=== PATIENT | male | born 1990 | race Caucasian/White ===

== ENCOUNTER 2020-06-04 08:26 | Outpatient (REF) | payer MEDICAID, SELFPAY ==
[2020-06-04 09:01] LABS: COVID-19 Test Negative (Negative); IDNOW Serial# 55D5AD1C
== END 2020-06-04 08:27 | disposition home or self-care (01) ==
LOC: HO.LAB 08:26
PROVIDERS: Visit Provider Internal Medicine
DX: Z20.822 Contact with and (suspected) exposure to COVID-19 (principal)
CPT/HCPCS: 36415; 87635; C9803

== ENCOUNTER 2020-08-24 13:20 | Outpatient (REF) | payer MEDICAID, SELFPAY | END 2020-08-24 13:21 | disposition home or self-care (01) | LOC: HO.LAB 13:20 | PROVIDERS: Visit Provider Internal Medicine | DX: Z20.822 Contact with and (suspected) exposure to COVID-19 (principal) | CPT/HCPCS: C9803; U0003; U0005 ==

== ENCOUNTER 2021-06-04 09:19 | Outpatient (REF) | payer MEDICAID, SELFPAY ==
--- NOTE | 2021-06-04 | PFT_ITS ---
INDICATION: Fatigue. SPIROMETRY: FEV1 to FVC 87% with an FEV1 of 4.58 L, which is 99% predicted and FVC of 5.27 L which is 94% predicted. No significant response to bronchodilators noted. The maximum voluntary ventilation is 76% predicted. LUNG VOLUMES: Total lung capacity 90% predicted. DIFFUSION CAPACITY: DLCO 91% predicted. COMPARISONS: None. INTERPRETATION: No obstructive nor restrictive ventilatory defects identified. No significant response to bronchodilators noted. Mild decrease in maximum voluntary ventilation secondary to likely deconditioning. Lung volumes are low normal but likely due to elevated BMI to some degree. Diffusion capacity is within normal limits. Clinical correlation is warranted. MD JOSE Jacques/MARIA C / [id number]
== END 2021-06-04 09:20 | disposition home or self-care (01) ==
LOC: HO.RESP 09:19
PROVIDERS: PCP Internal Medicine; Visit Provider Internal Medicine
DX: R53.83 Other fatigue (principal)
CPT/HCPCS: 94060; 94727; 94729

== ENCOUNTER 2021-07-11 11:49 | Outpatient (REF) | payer MEDICAID, SELFPAY ==
--- NOTE | ~2021-07-11 | XR_ITS ---
EXAMINATION: X-RAY LEFT ANKLE X-RAY LEFT FOOT CLINICAL INFORMATION: Pain. COMPARISON: Radiograph of the right foot dated from 07/05/2010. TECHNIQUE: 2 views of the left ankle. 3 views of the left foot. FINDINGS: No acute fractures or malalignment. The ankle mortise is maintained. No significant degenerative changes. No erosions. Os trigonum is identified in the lateral view. Small calcaneal spurring also noted on the lateral view. No significant soft tissue abnormality. XR/XR ankle LT 2V IMPRESSION: No acute fractures or malalignment. Os trigonum. Calcaneus Spurs.
--- NOTE | ~2021-07-11 | XR_ITS ---
EXAMINATION: X-RAY LEFT ANKLE X-RAY LEFT FOOT CLINICAL INFORMATION: Pain. COMPARISON: Radiograph of the right foot dated from 07/05/2010. TECHNIQUE: 2 views of the left ankle. 3 views of the left foot. FINDINGS: No acute fractures or malalignment. The ankle mortise is maintained. No significant degenerative changes. No erosions. Os trigonum is identified in the lateral view. Small calcaneal spurring also noted on the lateral view. No significant soft tissue abnormality. XR/XR foot LT min 3V IMPRESSION: No acute fractures or malalignment. Os trigonum. Calcaneus Spurs.
== END 2021-07-11 11:50 | disposition home or self-care (01) ==
LOC: HO.XRAY 11:49
PROVIDERS: PCP Internal Medicine; Visit Provider Internal Medicine
DX: M79.672 Pain in left foot (principal)
CPT/HCPCS: 73600; 73630

== ENCOUNTER 2021-08-26 12:21 | Outpatient (REF) | payer MEDICAID, SELFPAY ==
[2021-08-26 14:13] LABS: Syphilis Screen Nonreactive (Nonreactive)
[2021-08-26 17:56] LABS: CT PCR NOT DETECTED (Not Detect.); NG PCR NOT DETECTED (Not Detect.)
[2021-08-27 06:50] LABS: HIV AB/AG Nonreactive (Nonreactive); HIV Num 1 0.09 S/CO (0.00-0.99); ~HepC Num1 0.04 S/CO (0.00-0.79); ~Hepatitis C Antibody Nonreactive (Nonreactive)
== END 2021-08-26 12:22 | disposition home or self-care (01) ==
LOC: HO.LAB 12:21
PROVIDERS: PCP Internal Medicine; Visit Provider Internal Medicine
DX: Z11.3 Encounter for screening for infections with a predominantly sexual mode of transmission (principal); Z11.4 Encounter for screening for human immunodeficiency virus [HIV]
CPT/HCPCS: 86780; 86803; 87389; 87491; 87591

== ENCOUNTER 2024-12-10 01:36 | Inpatient (IN) | payer SELFPAY ==
[2024-12-10] VITALS (7 sets, daily range): BP systolic 116–155; BP diastolic 58–96; PULSE 59–93; RESP 16–20; TEMP 36.2–36.7; O2SAT 95–100; BMI 40.0; BMI 40.7
--- NOTE | ~2024-12-10 | CT_ITS ---
CLINICAL HISTORY: right renal colic CT ABDOMEN AND PELVIS WITHOUT CONTRAST COMPARISON: None provided. FINDINGS: There is mild right-sided hydroureteronephrosis, with an approximately 4-5 mm stone in the right ureterovesical junction. Stone is seen on axial image 752 of series 4. No renal calculi bilaterally. No left-sided hydronephrosis or left-sided obstructing stone. Urinary bladder is underdistended which limits assessment. No evidence of a small-bowel obstruction. No free air. Portions of the colon are underdistended which limits assessment. No pericolonic inflammation. Appendix is visualized and there is no evidence of acute appendicitis. There are several scattered colonic diverticula without evidence of acute diverticulitis. The lung bases are unremarkable. Fatty liver is noted, without focal lesion. Gallbladder is mildly distended. No visible stone. No pericholecystic inflammation. Stomach is not optimally distended which limits assessment. No CT evidence of acute pancreatitis. Spleen and adrenal glands are unremarkable. Abdominal aorta is normal in caliber without evidence of an aneurysm. No lymphadenopathy or loculated fluid collection. No evidence of a bowel containing hernia. Bone windows demonstrate no acute abnormalities. IMPRESSION: 1. Mild right-sided hydroureteronephrosis, with a 4-5 mm stone in the right ureterovesical junction. 2. Additional findings are detailed above. This document has been electronically signed by: Milton Whitley M.D. on 12/10/2024 05:19:26
--- NOTE | ~2024-12-10 | US_ITS ---
CLINICAL HISTORY: right hydroureteronephrosis, right UPJ STONE US Renal Comparison: CT/SR - CT ABDOMEN PELVIS WO IV CON - 12/10/24 04:18 EDT Findings: Right kidney normal size and echotexture, 13.8 cm length. Left kidney normal size and echotexture, 4.6 cm length. Slight prominence of right renal collecting system and proximal ureter measures up to 9 mm. Mid right ureter measures up to 5 mm. Small echogenic focus seen adjacent to the right ureterovesical junction. Bilateral ureteral jets are visualized. No left hydronephrosis. IMPRESSION: 1. Mild fullness of right renal collecting system and mild right hydroureter. Stone at/adjacent to right ureterovesical junction but right ureteral jet is visualized. 2. Unremarkable left kidney. This document has been electronically signed by: Samra Lobo MD on 12/11/2024 15:05:51
[2024-12-10 02:26] LABS: Hematocrit 45.6 % (42.0-52.0); Hemoglobin 15.4 g/dl (14.0-18.0); Imm Gran Abs Auto 0.07 X10*3/uL (0.00-0.03); Imm Gran Pct Auto 0.4 % (0.0-0.4); Lymphocytes Absolute Auto 1.7 X10*3/uL (1.2-4.9); MANUAL DIFF FLAG NO; Mean Corpuscular HGB Conc 33.8 g/dl (31.0-36.0); Mean Corpuscular Hemoglobin 29.5 pg (27.0-33.0); Mean Corpuscular Volume 87.4 fL (80.0-98.0); NRBC Abs Auto 0.000 X10*3/uL (0.0-0.012); NRBC Pct Auto 0.0 /100WBC (0.0-0.2); Platelet Count 330 X10*3/uL (160-400); Red Blood Count 5.22 X10*6/uL (4.60-5.80); White Blood Count 16.0 X10*3/uL (4.8-10.8)
[2024-12-10 02:43] LABS: Alanine Aminotransferase 24 U/L (0-40); Albumin Level 5.1 g/dL (3.5-5.0); Alkaline Phosphatase 95 U/L (39-117); Anion Gap 16 (12-20); Aspartate Amino Transferase 30 U/L (5-37); Blood Urea Nitrogen 20 mg/dL (9-16); Calcium 10.1 mg/dL (8.4-10.2); Carbon Dioxide 24 mmol/L (22-29); Chloride 101 mmol/L (96-108); Creatinine Clr Calc Pharmacy 109.8; Estimated Glomerular Filt Rate > 60; Lipase 28 U/L (8-78); Magnesium 2.2 mg/dL (1.6-2.6); Potassium 3.7 mmol/L (3.3-5.1); Sodium 137 mmol/L (135-145); Total Protein 7.9 g/dL (6.5-8.0)
--- OUTSIDE RECORDS SUMMARY | 2024-12-10 02:53 | XMS_ITS | Encounter Summary ---
Author Organization [email or web address] Address [address] [facility] 7t [place] [address] Care Team Providers Care Unishear Operator Name Role Phone Nick Starks MD Primary Care Prov ider Reason for Visit * Reason Onset Date Comments Lab Orders 02/16/2023 Encounter Details Date Type Department Care Team ([facility] st Contact Info) Description 02/16/2023 Telephone [facility] MEDICINE [address] [place] [address] Nick Starks MD [address] [place] [address] Lab Orders Social History Tobacco Use Types Packs/Day Years Used Date Smoking Tobacco: Every Day Cigarettes Smokeless Tobacco: Never Alcohol Use Standard Drinks/Week Comments Never 0 (1 standard drink = 0.6 oz pur e alcohol) Depression Answer Date Recorded Patient Health Questionnaire-9 Score 0 06/04/2022 Housing Stability Answer Date Recorded What is your housing situation today? I have mikhail echeverria 12/15/[address] you li ve. Do you have problems with any of the following? None of the above 12/15/2022 Food Insecurity Answer Date Recorded Within the past 12 months, y ou worried that your food would run out before you got money to buy more: Never True 12/15/2022 Within the past 12 months,th e food you bought just didn't last and you didn't have enough money to get more: Never True 07/2022 Transportation Answer Date Recorded In the past 12 months, has l ack of transportation kept you from medical appts, meetings, work or from getting things needed for daily living? No 12/15/2022 Utilities Answer Date Recorded In the past 12 months, has t he electric, gas, oil or water company threatened to shut off services in your home? No 12/15/2022 Depression Answer Date Recorded Patient Health Questionnaire-2 Score 0 06/04/2022 Sex and Gender Information Value Date Recorded Sex Assigned at Male 12/09/2021 10:20 AM EDT Legal Sex Male 10:20 AM EDT Gender Identity Male 12/09/2021 10:20 AM EDT Sexual Orientation Straight 12/09/2021 10 :20 AM EDT documented as of this encounter Miscellaneous Notes * Telephone Encounter - Jm Sinclair - 02/16/2023 10:46 AM EST Tc from patients mother requesting lab works due to family medical issues documented in this encounter Plan of Treatment Not on file documented as of this encounter Visit Diagnoses Not on filedocumented in this encounter Additional Health Concerns Assessment Noted Time PHQ-9 Depression Total Score: 0 06/05/19 23 2:05 PM EDT documented as of this encounter Care Teams Unishear Operator Relationship Specialty Start Date End Date Nick Starks MD [address] [place] [id number] PCP - General Internal Medicine 06/25/20 documented as of this encounter
--- OUTSIDE RECORDS SUMMARY | 2024-12-10 02:53 | XMS_ITS | Encounter Summary ---
Author Organization [employer] Address [address] [place] [address] 7t [place] [address] Care Team Providers Care Scullion Chief Name Role Phone Nick Starks MD Primary Care Prov ider Reason for Visit * Reason Onset Date Comments Call Back Request 03/09/2023 Encounter Details Date Type Department Care Team ([facility] Contact Info) Description 03/09/2023 Telephone [facility] CHC MED & PEDS [address] [place] [address] Nick Starks MD [address] [place] [address] Call Back Request Social History Tobacco Use Types Packs/Day Years [...] encounter Miscellaneous Notes * Telephone Encounter - Samra Roper RN - 03/09/2023 1:48 PM EST Mom not on HIPAA. Pt needs to return call and be triaged. * Telephone Encounter - Nadine Manning - 03/09/2023 1:39 PM EST Tc from mom requesting ibuprofen, tylenol, and topical cream for cold sores. Please contact mom at [phone] documented in this encounter Plan of Treatment Not on file documented as of this encounter Visit Diagnoses Not on filedocumented in this encounter Additional Health Concerns Assessment Noted Time PHQ-9 Depression Total Score: 0 06/05/19 23 2:05 PM EDT documented as of this encounter Care Teams Scullion Chief Relationship Specialty Start Date End Date Nick Starks MD [address] [place] [id number] PCP - General Internal Medicine 06/25/20 documented as of this encounter
--- OUTSIDE RECORDS SUMMARY | 2024-12-10 02:53 | XMS_ITS | Clinical Summary ---
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/04/2022 Assessment & Plan (06/04/2022 2:18 PM EDT): Currently not active, will provide valacyclovir 2000mg po Q12h x1 day to be started <72 of onset Encounters Date Type Department Care Team Description 11/22/2024 Telephone [facility] CHC MED & PEDS [address] [place] [address] Nick Starks MD 11/22/2024 Travel from Last 3 Months Social History Tobacco Use Types Packs/Day Years Used Date Smoking Tobacco: Every Day Cigarettes Smokeless Tobacco: Never Tobacco Cessation:Ready to Q uit: Not Asked; Counseling Given: Not Answered Alcohol Use Standard Drinks/Week Comments Never 0 [...] Orientation Straight 12/09/2021 10 :20 AM EDT Last Filed Vital Signs Vital Sign Reading Time Taken Comments Blood Pressure 136/98 02/11/2022 1:09 PM EST Pulse 68 02/11/2022 1:09 PM EST Temperature 36.8 C (98.3 F) 02/11/2022 1:09 PM EST Respiratory Rate 18 02/11/2022 1:09 PM EST Oxygen Saturation 98% 02/11/2022 1:09 PM EST Inhaled Oxygen Concentration - - Weight 125 kg (276 lb) 02/11/2022 1:09 PM EST Height 180.3 cm (5' 11 ) 02/11/2022 1:09 PM EST Body Mass Index 38.49 02/11/2022 1:09 PM EST Plan of Treatment Health Maintenance Due Date Last Done Comments Disability Screening 1989 Alcohol/Substance Use Screening 2001 Family Planning (PISQ) 2004 HPV Vaccines (1 - Male 3-dos e series) 2004 Hepatitis B Vaccines (1 of 3 - 19+ 3-dose series) 2008 Pneumococcal Vaccine: Pediatrics (0 to 5 Years) and At-Risk Patients (6 to 49) Years (1 of 2 - PCV) 2008 Tobacco Screening 02/11/2023 02/11/2022 Depression Screening 06/05/2023 06/04/2022, 06/04/2022 SDOH Screening 06/05/2023 06/04/2022 COVID-19 Vaccine (2 - 2024-2 6 season) 2024 09/18/2020 Influenza Vaccine (#1) 2024 Lipid Panel 03/19/2026 03/19/2021 DTaP/Tdap/Td Vaccines (2 - T d or Tdap) 01/10/2027 01/10/2017 Zoster Vaccines (1 of 2) 2039 RSV Patients and Patients Aged 60 years or older (1 - 1-dose 75+ series) 2064 HIV Screening Completed 08/26/2021, 06/03/2021, 03/19/2021 Hepatitis C Screening Completed 08/26/2021 , 03/19/2021 HIB Vaccines Aged Out No longer eligi ble based on patient's age to complete this topic Hepatitis A Vaccines Aged Out No long er eligible based on patient's age to complete this topic IPV Vaccines Aged Out No longer eligi ble based on patient's age to complete this topic Meningococcal B Vaccine Aged Out No l onger eligible based on patient's age to complete this topic Meningococcal Vaccine Aged Out No jethro melany eligible based on patient's age to complete this topic RSV under 20 months Aged Out No longe r eligible based on patient's age to complete this topic Rotavirus Vaccines Aged Out No longer eligible based on patient's age to complete this topic Procedures Procedure Name Priority Date/Time Associated Diagnosis Comments ZZZ HISTORICAL HEPATITIS C ANTIBODY RFLX Routine 08/26/2021 12:32 PM EDT ZZZ HISTORICAL HIV AB/AG Routine 08/26/2021 12:32 PM EDT LIPID PANEL, STANDARD Routine 03/19/2021 2:38 PM EST from Last 3 Months or Most Recently Relevant to Health Maintenance Results * HEPATITIS C ANTIBODY RFLX (08/26/2021 12:32 PM EDT) Pathologist [facility] Hepatitis C Antibody Nonreactive Nonreactive [facility] Comment: Antibodies to HCV not detected; does not exclude early acute HCV infection. 08/26/2021 12:3 2 PM EDT Nick Armstrong MD HISTORICAL/NON ORD ERABLE LABS Final Result Performing Organization Address [facility] de Phone Number [facility] [address] [place] [address], * HIV AB/AG (08/26/2021 12:32 PM EDT) Pathologist [facility] HIV AB/AG Nonreactive Nonreactive [facility] Comment: HIV-1 p24 Ag and/or HIV-1/HIV-2 Ab not detected. A test result that is nonreactive does not exclude the possibility of exposure to or infection with HIV-1 and/or HIV-2. Nonreactive results in this assay for individuals with prior exposure to HIV-1 and/or HIV-2 may be due to antigen and antibody levels that are below the limit of detection of this assay. The [employer] Low Pressure Kettle Operator HIV Ag/Ab Combo assay result and supplemental assay results should be interpreted in conjunction with the patient's clinical presentation, history and other laboratory results. If the results are inconsistent with clinical evidence, additional testing is suggested to confirm the result. 08/26/2021 12:3 2 PM EDT Nick Armstrong MD HISTORICAL/NON ORD ERABLE LABS Final Result Performing Organization Address [facility] Phone Number [facility] [address] * (ABNORMAL) LIPID PANEL, STANDARD (03/19/2021 2:38 PM EST) Chol/HDLC Ratio 6.6(H) <5.0 (calc) [facility] Cholesterol, Total 249(H) <200 mg/dL [facility] HDL Cholesterol 38(L) > OR = 40 mg/dL [facility] LDL Cholesterol 181(H) mg/dL (calc) [facility] Comment: Reference range: <100 Desirable range <100 mg/dL for primary prevention; <70 mg/dL for patients with CHD or diabetic patients with > or = 2 CHD risk factors. LDL-C is now calculated using the Mayur-Reynolds calculation, which is a validated novel method providing better accuracy than the Friedewald equation in the estimation of LDL-C. Mayur SS et al. CHRISTOPHER. 2013;310(19): 3934-7526 (http://education.Audioscribe.[employer]/faq/QWA492) Non-HDL Cholesterol 211(H) <130 mg/dL (calc) [facility] Comment: For patients with diabetes plus 1 major ASCVD risk factor, treating to a non-HDL-C goal of <100 mg/dL (LDL-C of <70 mg/dL) is considered a therapeutic option. Triglycerides 152(H) <150 mg/dL [facility] 03/19/2021 2:38 PM EST us Nick Armstrong MD LAB BLOOD ORDERABL ES Final Result [facility] [address] from Last 3 Months or Most Recently Relevant to Health Maintenance Care Teams Emergency Room Clerk Relationship Specialty Start Date End Date Nick Starks MD [address] [place] [phone] PCP - General Internal Medicine 06/25/20
--- OUTSIDE RECORDS SUMMARY | 2024-12-10 02:53 | XMS_ITS | Encounter Summary ---
Author Organization [employer] Address [address] [facility] 7t [place] [address] Care Team Providers Care Senior Electrical Project Manager Name Role Phone Nick Starks MD Primary Care Prov ider Encounter Details Date Type Department Care Team (Late st Contact Info) Description 02/17/2023 Orders Only [facility] CHC MED & PEDS [address] [place], [place] [phone] Nick Stakrs MD [address] [place] [address] Social History Tobacco Use Types Packs/Day Years Used Date Smoking Tobacco: Every Day Cigarettes Smokeless Tobacco: Never Alcohol Use Standard Drinks/Week Comments Never 0 (1 standard drink = 0.6 oz pur e alcohol) Depression Answer Date Recorded Patient Health Questionnaire-9 Score 0 06/04/2022 Housing Stability Answer Date Recorded What is your housing situation today? I have mikhailflora echeverria 12/15/[address] you [...] AM EDT documented as of this encounter Plan of Treatment Not on file documented as of this encounter Visit Diagnoses Not on filedocumented in this encounter Additional Health Concerns Assessment Noted Time PHQ-9 Depression Total Score: 0 06/05/19 23 2:05 PM EDT documented as of this encounter Care Teams Senior Electrical Project Manager Relationship Specialty Start Date End Date Nick Starks MD [address] [place] [id number] PCP - General Internal Medicine 06/25/20 documented as of this encounter
--- OUTSIDE RECORDS SUMMARY | 2024-12-10 02:53 | XMS_ITS | Encounter Summary ---
Author Organization [employer] Address [address] [facility] 7t [place] [address] Care Team Providers Care Help Desk Representative Name Role Phone Nick Starks MD Primary Care Prov ider Reason for Visit * Reason Onset Date Comments Nurse Triage 02/16/2023 Encounter Details Date Type Department Care Team ([facility] st Contact Info) Description 02/16/2023 Telephone [facility] MEDICINE [address] [place] [address] Nick Starks MD [address] [place] [address] Nurse Triage Social History Tobacco Use Types Packs/Day Years [...] Telephone Encounter - Jm Sinclair - 02/16/2023 10:51 AM EST Symptom: Cold Sores on face Outcome: Schedule an appointment to be seen within 24 hours Reason: Caller denied all higher acuity questions The caller accepted this outcome documented in this encounter Plan of Treatment Not on file documented as of this encounter Visit Diagnoses Not on filedocumented in this encounter Additional Health Concerns Assessment Noted Time PHQ-9 Depression Total Score: 0 06/05/19 23 2:05 PM EDT documented as of this encounter Care Teams Help Desk Representative Relationship Specialty Start Date End Date Nick Starks MD [address] [place] [id number] PCP - General Internal Medicine 06/25/20 documented as of this encounter
[2024-12-10 04:42] LABS: Appearance Urine Turbid; Glucose Urine UA 100 mg/dL (Negative); PH 5.5 (5.0-9.0); Specific Gravity - Urine >= 1.030 (1.005-1.025); UMIC TRIGGER UACC YES
[2024-12-10 04:49] LABS: UACC Culture Trigger YES
--- NOTE | 2024-12-10 05:12 | ED_ITS ---
HPI - General Adult General Chief complaint: Abdominal Pain Stated complaint: Stomach pain , unable to urinate Time Seen by Provider: 12/10/24 02:05 History of Present Illness HPI narrative: 34-year-old male who is morbidly obese, presents with severe right flank pain that woke him from sleep. Pain over mid to lower flank with radiation to right lower abdomen, pain is intermittent becoming sharp and severe at times. Patient states he has a sensation that he needs to void but can not. Associated nausea but no vomiting no fevers. No history of kidney stones. Related Data Allergies Allergy/AdvReac Type Severity Reaction Status Date / Time No Known Allergies Allergy Verified 12/10/24 01:49 Latex Allergy Unknown rash Uncoded 12/10/24 01:49 Review of Systems 2 Review of Systems: Yes all other systems are reviewed and are negative Constitutional: Constitutional: Denies fatigue and Denies fever(s) Cardiovascular: Cardiovascular: Denies chest pain and Denies dyspnea Respiratory: Respiratory: Denies dyspnea Gastrointestinal: Gastrointestinal: Reports abdominal pain, Reports nausea and Denies vomiting Genitourinary: Genitourinary: Reports oliguria, Reports dysuria and Reports flank pain Musculoskeletal: Musculoskeletal: Reports back pain Endocrine: Endocrine: Denies fatigue PMFSH Past Medical History Attestation statement: The following information was validated with the patient. Social History Social History Alcohol intake: current Smoked in Last 30 Days: Yes Use of substances other than those prescribed or required for medical reasons: Yes Substance Use Type: Marijuana Substance Use Frequency: Daily Last Used Substance: Hours (ago) Any prior treatment program specific to substance use: No Advance Directives: No Advance Directives Information Provided: Yes Do you have a plan to hurt others: No Plan Physical Exam ED Vital Signs: Vital Signs - 24 hr 12/10/24 01:43 Temperature 97.5 F Pulse Rate 68 Respiratory Rate 18 Pulse Oximetry 100 Oxygen Delivery Method Room Air BMI result Body Mass Index 40.0 Const Other: Alert, appears very uncomfortable Orientation/consciousness: patient oriented x3 Resp Effort & Inspection: normal respiratory effort Cardio Other: Normal peripheral perfusion GI Other: Abdomen is soft, obese, nontender no guarding General: Yes no CVA tenderness Back/Spine/Pelvis Back: no CVA tenderness Skin Other: Warm dry no rash Neuro General: patient oriented x3, gait normal, no focal motor deficits and CN's II- XI intact bilaterally Psych Other: Cooperative Medications Administered Discontinued Medications Generic Name Dose Route Start Last Admin Trade Name Pily PRN Reason Stop Dose Admin Sodium Chloride 1,000 mls @ 999 mls/hr 12/10/24 02:30 12/10/24 02:30 Ns IV 12/10/24 03:30 999 mls/hr .Q1H1M EDEN Administration Ketorolac Tromethamine 15 mg 12/10/24 02:18 12/10/24 02:28 Ketorolac Tromethamine 15 Mg/Ml Vial IVPUSH 12/10/24 02:19 15 mg ONCE ONE Administration Morphine Sulfate 6 mg 12/10/24 02:18 12/10/24 02:29 Morphine Sulfate 10 Mg/Ml Cartridge IVPUSH 12/10/24 02:19 6 mg ONCE ONE Administration Protocol Morphine Sulfate 6 mg 12/10/24 04:16 12/10/24 04:27 Morphine Sulfate 10 Mg/Ml Cartridge IVPUSH 12/10/24 04:17 6 mg ONCE ONE Administration Protocol Ondansetron HCl 4 mg 12/10/24 02:18 12/10/24 02:29 Ondansetron Hcl 4 Mg/2 Ml Vial IVPUSH 12/10/24 02:19 4 mg ONCE ONE Administration Tamsulosin HCl 0.4 mg 12/10/24 02:18 12/10/24 02:30 Tamsulosin Hcl 0.4 Mg Capsule PO 12/10/24 02:19 0.4 mg ONCE ONE Administration Procedures Procedure Narrative Procedure Narrative: Ultrasound-guided IV 20 gauge 1.16 in IV placed in left upper extremity, adequate blood return, flushes well secured with Tegaderm Medical Decision Making Medical Decision Making MDM Narrative: 34-year-old male who is morbidly obese, presents with severe right flank pain that woke him from sleep. Pain over mid to lower flank with radiation to right lower abdomen, pain is intermittent becoming sharp and severe at times. Patient states he has a sensation that he needs to void but can not. Associated nausea but no vomiting no fevers. No history of kidney stones. No known chronic issues History: Per patient I have considered the following differential diagnoses: Pyelonephritis, UTI, renal colic Plan: Given distribution of discomfort in nature of symptoms, I am concerned for renal colic, the patient has had reduced urine output. Screening basic labs a UA obtaining a CT scan. We will be giving IV fluid morphine, Toradol, Zofran and Flomax. Thought about pyelonephritis, however no CVA tenderness. He is not complaining of dysuria, he is completing of decreased urine output, which is more consistent with an obstructing stone. I have independently reviewed the following tests: Labs: Leukocytosis 16 with left shift, not anemic, no electrolyte abnormality, urine infected, positive for nitrite, adding on blood cultures, lactic and starting ceftriaxone, giving additional IV fluids CT abdomen and pelvis:IMPRESSION: 1. Mild right-sided hydroureteronephrosis, with a 4-5 mm stone in the right ureterovesical junction. 2. Additional findings are detailed above. Differential Diagnosis Differential Diagnoses: The differential diagnosis associated with the presentation includes Medical decision-making Admission/Observation Consideration of admission/observation: Escalation of care including admission/observation considered We will be admitted likely urology consult Consult Healthcare Provider Management of the patient was discussed with: Hospitalist and Education Reviewer Likely Urology as well Lab Data MDM Lab Attestation statement: I reviewed the patient's lab results. 12/10/24 02:19 12/10/24 02:19 Labs: Lab Results 12/10/24 12/10/24 Range/Units 02:19 04:12 WBC 16.0 H (4.8-10.8) X10*3/uL RBC 5.22 (4.60-5.80) X10*6/uL Hgb 15.4 (14.0-18.0) g/dl Hct 45.6 (42.0-52.0) % MCV 87.4 (80.0-98.0) fL MCH 29.5 (27.0-33.0) pg MCHC 33.8 (31.0-36.0) g/dl RDW 13.2 (11.0-16.0) % Plt Count 330 (160-400) X10*3/uL MPV 8.9 L (9.4-12.4) fL Immature Gran % (Auto) 0.4 (0.0-0.4) % Neut % (Auto) 81.6 H (45-73) % Lymph % (Auto) 10.7 L (20-40) % [place] % (Auto) 6.1 (2-11) % Eos % (Auto) 0.8 (0-4) % Baso % (Auto) 0.4 (0-2) % Lymph # (Auto) 1.7 (1.2-4.9) X10*3/uL [place] # (Auto) 1.0 (0.1-1.2) X10*3/uL Eos # (Auto) 0.1 (0.0-0.4) X10*3/uL Baso # (Auto) 0.1 (0.0-0.2) X10*3/uL Abs Immat Gran (auto) 0.07 H (0.00-0.03) X10*3/uL Absolute Neuts (auto) 13.1 H (2.0-8.3) x10*3/uL Absolute Nucleated RBC 0.000 (0.0-0.012) X10*3/uL Nucleated RBC % (auto) 0.0 (0.0-0.2) /100WBC Sodium 137 (135-145) mmol/L Potassium 3.7 (3.3-5.1) mmol/L Chloride 101 (96-108) mmol/L Carbon Dioxide 24 (22-29) mmol/L Anion Gap 16 (12-20) BUN 20 H (9-16) mg/dL Creatinine 1.29 (0.5-1.4) mg/dL Estim Creat Clear Calc 109.8 Estimated GFR > 60 Random Glucose 207 H (60-115) mg/dL Calcium 10.1 (8.4-10.2) mg/dL Magnesium 2.2 (1.6-2.6) mg/dL Total Bilirubin 1.8 H (0.0-1.0) mg/dL AST 30 (5-37) U/L ALT 24 (0-40) U/L Alkaline Phosphatase 95 (39-117) U/L Total Protein 7.9 (6.5-8.0) g/dL Albumin 5.1 H (3.5-5.0) g/dL Lipase 28 (8-78) U/L Urine Color Yellow Urine Appearance Turbid Urine pH 5.5 (5.0-9.0) Ur Specific [place] >= 1.030 H (1.005-1.025) Urine Protein 300 (3+) H (Neg-Trace) mg/dL Urine Glucose (UA) 100 H (Negative) mg/dL Urine Ketones Trace (Negative) mg/dL Urine Blood Moderate (2+) H (Negative) Urine Nitrite Positive H (Negative) Ur Leukocyte Esterase Trace H (Negative) Urine RBC 3-5 H (0-2) /HPF Urine WBC 0-5 (0-5) /HPF Ur Squamous Epith Cells 0-2 (0-2) /HPF Urine Bacteria None Seen (None Seen) Hyaline Casts 3-5 (0-2) /LPF Radiology Impression Discussion of test interpretation with radiology: I have reviewed the radiologist's reading. Discharge Plan Discharge Clinical Impression: Urinary tract infection, Calculus of distal right ureter, Hydroureter on right, Hydronephrosis of right kidney Patient Disposition: Admitted As Inpatient Print Language: Portuguese
--- NOTE | 2024-12-10 05:45 | HO.NURTONUR ---
came in c/o urinary retention and abd pain x [address] - Mild right-sided hydroureteronephrosis, with a 4-5 mm stone in the right ureterovesical junction. UA +nitrites, admitted for IV atb, WBC 16k.DX: Urinary tract infection, Calculus of distal right ureter, Hydroureter on right, Hydronephrosis of right kidney. 20g IV left AC. Alert and oriented. uses urinal. Med in ER dialudid, morphine x 2 doses.l 2 liters bolus NS. Rocephin 2gm IV, zofran, toradol. Vitals have been stable and no fever.
--- NOTE | 2024-12-10 06:07 | P.HPHOSP_ITS ---
History of Present Illness Date of Service: 12/10/24 Attending physician on admission: Gilberto Armstrong Chief Complaint: Right flank pain Berhane Ruth is a 34 years old man with no significant past medical history presents to the emergency department complaining of severe right flank pain/back radiating to the pelvic region since yesterday. He had decreased urinary frequency are noted that his urine was dark. He denied nausea or vomiting. Denied fever or chills. Denied any acute cardiopulmonary or gastrointestinal symptoms. Denied history of nephrolithiasis. He smoked marijuana daily. Denied illicit drug use or alcohol abuse. In the ED he was found to have stable vital. Blood workup was remarkable for leukocytosis of 16.0. There is no lactic acidosis. Hemoglobin is 12.4 and platelets 330. There are no significant electrolyte imbalances. His glucose 207. Total bilirubin is 1.8, other LFTs and lipase are normal. Albumin 5.1. Urinalysis showed blood 2+, RBC 3-4, leukocyte esterase trace, nitrite positive, WBC 0-5, specific gravity. Abdomen and pelvis CT scan without IV contrast showed mild right sided hydroureteronephrosis with 4-5 mm stone in the right ureterovesical joint. ED Tx: NS 1 L bolus, ketorolac 15 mg IV, morphine 12 mg IV total, Zofran 4 mg IV, tamsulosin 0.4 mg p.o., ceftriaxone 2 g IV Review of Systems 2 Review of Systems: All 12 systems were reviewed and normal except as noted in HPI. [facility] Medical History (Updated 12/10/24 @ 06:22 by Gilberto Armstrong MD) Obesity due to excess calories Social History Alcohol intake: current Smoked in Last 30 Days: Yes Use of substances other than those prescribed or required for medical reasons: Yes Substance Use Type: Marijuana Substance Use Frequency: Daily Last Used Substance: Hours (ago) Any prior treatment program specific to substance use: No Advance Directives: No Advance Directives Information Provided: Yes Do you have a plan to hurt others: No Plan Meds Allergies Allergy/AdvReac Type Severity Reaction Status Date / Time No Known Allergies Allergy Verified 12/10/24 01:49 Latex Allergy Unknown rash Uncoded 12/10/24 01:49 Active Medications: Current Medications Hydromorphone HCl (Hydromorphone Hcl 1 Mg/Ml Syringe) 1 mg IVPUSH Q3H PRN; Protocol PRN Reason: Pain, Severe (Pain Scale 7-10) Last Admin: 12/10/24 05:37 Dose: 1 mg Sodium Chloride (Ns) 1,000 mls @ 999 mls/hr IV .Q1H1M EDEN Stop: 12/10/24 06:15 Last Admin: 12/10/24 05:29 Dose: 999 mls/hr Ondansetron HCl (Ondansetron Hcl 4 Mg/2 Ml Vial) 4 mg IVPUSH Q4H PRN PRN Reason: Nausea and Vomiting Physical Exam 2 Vital Signs and Narrative: Vital Signs: Last Vital Signs Temp 97.5 F 12/10/24 01:43 Pulse 68 12/10/24 01:43 Resp 18 12/10/24 01:43 Pulse Ox 100 12/10/24 01:43 O2 Del Method Room Air 12/10/24 01:43 BMI result Body Mass Index 40.0 General: Alert, oriented, in no acute distress. Cooperative. Afebrile. Obese. HEENT: Head normocephalic, atraumatic. PER, EOMI. Sclerae anicteric, conjunctiva clear. Dry oral mucosa. Neck: Supple, no lymphadenopathy, or JVD. Heart: RRR, no murmurs, rubs or gallops. Lungs: Clear to auscultation bilaterally. No wheezes, rales, or rhonchi. Normal respiratory effort. Abdomen: Soft, right flank tenderness to palpation without rebound or guarding, (-) CVA tenderness, nondistended, normoactive bowel sounds. Extremities: No calf tenderness bilaterally, no swelling Musculoskeletal: Full range of motion. No joint swelling, deformity, or tenderness. Normal muscle tone and strength. Skin: Warm/Dry. No pallor. No jaundice. Neurologic: Alert & oriented x4. Moving all extremities spontaneously. Normal speech. Psychological: Normal mood and affect. Thought process coherent. Results Labs 12/10/24 02:19 12/10/24 02:19 Labs: Laboratory Results - last 24 hr 12/10/24 12/10/24 12/10/24 02:19 04:12 05:32 MCV 87.4 MCH 29.5 MCHC 33.8 RDW 13.2 Plt Count 330 MPV 8.9 L Immature Gran % (Auto) 0.4 Neut % (Auto) 81.6 H Lymph % (Auto) 10.7 L [place] % (Auto) 6.1 Eos % (Auto) 0.8 Baso % (Auto) 0.4 Lymph # (Auto) 1.7 [place] # (Auto) 1.0 Eos # (Auto) 0.1 Baso # (Auto) 0.1 Abs Immat Gran (auto) 0.07 H Absolute Neuts (auto) 13.1 H Absolute Nucleated RBC 0.000 Nucleated RBC % (auto) 0.0 Anion Gap 16 Estim Creat Clear Calc 109.8 Estimated GFR > 60 Random Glucose 207 H Lactic Acid 1.4 Calcium 10.1 Magnesium 2.2 Total Bilirubin 1.8 H AST 30 ALT 24 Alkaline Phosphatase 95 Total Protein 7.9 Albumin 5.1 H Lipase 28 Urine Color Yellow Urine Appearance Turbid Urine pH 5.5 Ur Specific [place] >= 1.030 H Urine Protein 300 (3+) H Urine Glucose (UA) 100 H Urine Ketones Trace Urine Blood Moderate (2+) H Urine Nitrite Positive H Ur Leukocyte Esterase Trace H Urine RBC 3-5 H Urine WBC 0-5 Ur Squamous Epith Cells 0-2 Urine Bacteria None Seen Hyaline Casts 3-5 Assessment and Plan (1) Hydronephrosis of right kidney: Status: Acute (2) Calculus of distal right ureter: Status: Acute (3) Hyperglycemia: Status: Acute Plan Berhane Ruth is a 34 y/o man who presents with: Right hydronephrosis due to obstructive renal calculi. Continue IV fluids. Pain control. Empiric IV antibiotic therapy ?UTI. Blood and urine culture obtained -will follow resuls. Urology consult. Hyperglycemia, random glucose 207. No history of diabetes mellitus. IV fluids. BG checks before meals at bedtime. Insulin sliding scale. Check hemoglobin A1c. Diabetic diet. Obesity class 3. BMI 40.0 kg/m2. Encourage weight loss and lifestyle modifications. Code status: Full DVT prophylaxis: SCDs, early ambulation Patient will need hospitalization for at least 2 midnights for right hydronephrosis due to obstructive renal calculi therapy with IV fluids, IV pain control, empiric IV antibiotic therapy and evaluation by Urology for possible urgent procedure. Quality Stroke Does the patient have a stroke diagnosis?: No VTE Prior VTE?: No VTE Risk Level:: Medical - moderate - high VTE Device Contraindication: N/A - Device Ordered VTE Drug Contraindication: Treatment Not Indicated
[2024-12-10 06:38] LABS: Hemoglobin A1C 174.9807 umol/L; Total Hemoglobin (HGBA1C) 3549.8491 umol/L
[2024-12-10 06:46] LABS: Cholesterol 202 mg/dL (<200); HDL Cholesterol 43 mg/dL (>40); Triglycerides 130 mg/dL (<150)
[2024-12-10] MEDS: Lactated Ringers 1,000 ML 125 ML IVCONT (06:46)
--- NOTE | 2024-12-10 07:02 | P.CNUR_ITS ---
History of Present Illness Consult details Consult date: 12/10/24 Narrative: UTI, Obesity, right ureteral stone, mild hydronephosis 34-year-old male who is morbidly obese, presents with severe right flank pain. Pain over mid to lower flank with radiation to right lower abdomen. Associated nausea but no vomiting no fevers. No history of kidney stones. Review of Systems 2 Review of Systems: Yes all other systems are reviewed and are negative Constitutional: Constitutional: Reports no additional constitutional complaints Eyes: Eyes: Reports no additional eye complaints ENT: Reports system reviewed and no additional complaints, except as documented Cardiovascular: Cardiovascular: Reports no additional cardiovascular complaints Respiratory: Respiratory: Reports no additional respiratory complaints Gastrointestinal: Gastrointestinal: Reports no additional gastrointestinal complaints Genitourinary: Genitourinary: Reports as per HPI Musculoskeletal: Musculoskeletal: Reports no additional musculoskeletal complaints Integumentary/Breasts: Skin/Breast: Reports system reviewed and no additional complaints, except as docu Neurologic: Reports system reviewed and no additional complaints, except as documented Psychiatric: Psychiatric: Reports no additional psychiatric complaints Endocrine: Endocrine: Reports no additional endocrine complaints Hematologic/Lymphatic: Hematologic/Lymphatic: Reports no additional hematologic/lymphatic complaints Allergic/Immunologic: Allergic/Immunologic: Reports no additional allergic/immunologic complaints PMF Past Medical History Medical History Obesity due to excess calories Social History Social History Household Members: Family Housing: Apartment Do you presently have visiting nurse or other home services: No Alcohol intake: current Patient Tobacco Use Status: Current someday Tobacco user Tobacco use type: Cigarette Second Hand Smoke Exposure: Yes Substance Use Type: Marijuana Meds Allergies Allergy/AdvReac Type Severity Reaction Status Date / Time No Known Allergies Allergy Verified 12/10/24 01:49 Latex Allergy Unknown rash Uncoded 12/10/24 01:49 Active Medications: Current Medications Acetaminophen (Acetaminophen 325 Mg Tablet) 975 mg PO Q6H PRN PRN Reason: Pain, Mild 1-3,fever,headache Calcium Carbonate (Calcium Carbonate 750 Mg Tab.Chew) 750 mg PO Q4H PRN PRN Reason: Heartburn Dextrose (Dextrose 50 % 25 Gm/50 Ml Syringe) 25 gm IVPUSH Q15M PRN; Protocol PRN Reason: per Hypoglycemia Standing Ord. Glucose (Glucose Gel 15 Gm Gel..Gram.) 15 gm PO Q15M PRN; Protocol PRN Reason: per Hypoglycemia Standing Ord. Hydromorphone HCl (Hydromorphone Hcl 1 Mg/Ml Syringe) 1 mg IVPUSH Q3H PRN; Protocol PRN Reason: Pain, Severe (Pain Scale 7-10) Last Admin: 12/10/24 05:37 Dose: 1 mg Lactated Ringer's (Lr) 1,000 mls @ 125 mls/hr IVCONT .Q8H [facility] Stop: 12/10/24 14:14 Last Admin: 12/10/24 06:46 Dose: 125 mls/hr Ceftriaxone Sodium 2 gm/ (Sodium Chloride) 50 mls @ 100 mls/hr IV Q24H [facility] Insulin Human Lispro (Insulin Lispro 100 Unit/Ml 3 Ml Vial) 0 unit SUBCUT QIDACHS [facility]; Protocol Ketorolac Tromethamine (Ketorolac Tromethamine 30 Mg/Ml Vial) 30 mg IVPUSH Q6H PRN PRN Reason: Pain, Moderate(Pain Scale 4-6) Magnesium Hydroxide (Milk Of Magnesia 30 Ml Oral.Susp) 30 ml PO DAILY PRN PRN Reason: Constipation Melatonin (Melatonin 3 Mg Tablet) 6 mg PO BEDTIME PRN PRN Reason: Insomnia Ondansetron HCl (Ondansetron Hcl 4 Mg/2 Ml Vial) 4 mg IVPUSH Q4H PRN PRN Reason: Nausea and Vomiting Sodium Chloride (0.9 % Sodium Chloride Flush 3 Ml Syringe) 3 ml IVFLUSH [facility] Home Medications ?Medication ?Instructions ?Recorded ?Confirmed ?Last Taken ?Type No Known Home Meds 12/10/24 12/10/24 Un known History Physical Exam 2 Vital Signs: Vital Signs: Last Vital Signs Temp 97.5 F 12/10/24 06:31 Pulse 61 12/10/24 06:31 Resp 18 12/10/24 06:31 BP 143/82 H 12/10/24 06:31 Pulse Ox 95 12/10/24 04:00 O2 Del Method Room Air 12/10/24 04:00 BMI result Body Mass Index 40.0 Results Labs 12/10/24 02:19 12/10/24 02:19 Labs: Abnormal lab results 12/10/24 12/10/24 12/10/24 Range/Units 02:19 04:12 06:25 WBC 16.0 H (4.8-10.8) X10*3/uL MPV 8.9 L (9.4-12.4) fL Neut % (Auto) 81.6 H (45-73) % Lymph % (Auto) 10.7 L (20-40) % Abs Immat Gran (auto) 0.07 H (0.00-0.03) X10*3/uL Absolute Neuts (auto) 13.1 H (2.0-8.3) x10*3/uL BUN 20 H (9-16) mg/dL Random Glucose 207 H (60-115) mg/dL Hemoglobin A1c % 6.7 H (<6.0) % Total Bilirubin 1.8 H (0.0-1.0) mg/dL Albumin 5.1 H (3.5-5.0) g/dL Cholesterol 202 H (<200) mg/dL LDL Cholesterol, Calc 133 H (<100) mg/dL Ur Specific [place] >= 1.030 H (1.005-1.025) Urine Protein 300 (3+) H (Neg-Trace) mg/dL Urine Glucose (UA) 100 H (Negative) mg/dL Urine Blood Moderate (2+) H (Negative) Urine Nitrite Positive H (Negative) Ur Leukocyte Esterase Trace H (Negative) Urine RBC 3-5 H (0-2) /HPF Short CBC 12/10/24 Range/Units 02:19 WBC 16.0 H (4.8-10.8) X10*3/uL Hgb 15.4 (14.0-18.0) g/dl Hct 45.6 (42.0-52.0) % Plt Count 330 (160-400) X10*3/uL BMP 12/10/24 02:19 Sodium 137 Potassium 3.7 Chloride 101 Carbon Dioxide 24 BUN 20 H Creatinine 1.29 Calcium 10.1 Liver Function 12/10/24 Range/Units 02:19 Total Bilirubin 1.8 H (0.0-1.0) mg/dL AST 30 (5-37) U/L ALT 24 (0-40) U/L Alkaline Phosphatase 95 (39-117) U/L Albumin 5.1 H (3.5-5.0) g/dL Urine 12/10/24 Range/Units 04:12 Urine Color Yellow Urine Appearance Turbid Urine pH 5.5 (5.0-9.0) Ur Specific [place] >= 1.030 H (1.005-1.025) Urine Protein 300 (3+) H (Neg-Trace) mg/dL Urine Glucose (UA) 100 H (Negative) mg/dL Imaging Abdomen CT scan report/results: report reviewed and image reviewed CT scan - pelvis: report reviewed and image reviewed Additional studies: Date of Service: 12/10/24 CLINICAL HISTORY: right renal colic CT ABDOMEN AND PELVIS WITHOUT CONTRAST COMPARISON: None provided. FINDINGS: There is mild right-sided hydroureteronephrosis, with an approximately 4-5 mm stone in the right ureterovesical junction. Stone is seen on axial image 752 of series 4. No renal calculi bilaterally. No left-sided hydronephrosis or left-sided obstructing stone. Urinary bladder is underdistended which limits assessment. No evidence of a small-bowel obstruction. No free air. Portions of the colon are underdistended which limits assessment. No pericolonic inflammation. Appendix is visualized and there is no evidence of acute appendicitis. There are several scattered colonic diverticula without evidence of acute diverticulitis. The lung bases are unremarkable. Fatty liver is noted, without focal lesion. Gallbladder is mildly distended. No visible stone. No pericholecystic inflammation. Stomach is not optimally distended which limits assessment. No CT evidence of acute pancreatitis. Spleen and adrenal glands are unremarkable. Abdominal aorta is normal in caliber without evidence of an aneurysm. No lymphadenopathy or loculated fluid collection. No evidence of a bowel containing hernia. Bone windows demonstrate no acute abnormalities. IMPRESSION: 1. Mild right-sided hydroureteronephrosis, with a 4-5 mm stone in the right ureterovesical junction. 2. Additional findings are detailed above. Assessment and Plan (1) Calculus of distal right ureter: Status: Acute (2) Hydroureter on right: Status: Acute (3) Hydronephrosis of right kidney: Status: Acute (4) Urinary tract infection: Status: Acute Plan IVF hydration, IV Cefriaxone, urine and blood c/s pending, clinically stable Flomax, will monitor, strain all urine. No plans for OR today. Cont diet. Procedures Date of Service Date of Service: 12/10/24
[2024-12-10 07:08] LABS: Reflex LDLD? No
[2024-12-10 07:33] LABS: Glucose, Whole Blood 140 mg/dL (60-115)
--- NOTE | 2024-12-10 08:01 | PC.NURSE ---
Pt asleep at this time, breathing easy
--- NOTE | 2024-12-10 09:05 | PM.EVENT ---
Event Note Date of Service: 12/10/24 Event Note: Patient was seen and examined by hospitalist team this morning. Patient is seen and examined again 34 y/o man who presents with:Right hydronephrosis due to obstructive renal calculi. Continue IV fluids. Pain control. Empiric IV antibiotic therapy ?UTI. Blood and urine culture obtained -will follow resuls. Urology consult. Blood and urine culture pending new onset dm: Hba1c levels moniter fs /sliding scale Time Spent With Patient Time: Total time managing care of this patient today ____ minutes.
--- NOTE | 2024-12-10 11:47 | PHA.MEDREC ---
Pharmacy Consult ? Medication Reconciliation Pharmacy has completed the medication reconciliation. Patient confirmed they take no medications at home including OTCs
[2024-12-10 13:14] LABS: Glucose, Whole Blood 141 mg/dL (60-115)
[2024-12-10 15:44] LABS: Glucose, Whole Blood 167 mg/dL (60-115)
[2024-12-10] MEDS: 0.9 % Sodium Chloride Flush 3 ML SYRINGE IVFLUSH ×2 (16:52→21:03)
[2024-12-10 20:34] LABS: Glucose, Whole Blood 125 mg/dL (60-115)
--- NOTE | 2024-12-11 00:49 | PM.EVENT ---
Event Note Date of Service: 12/11/24 Event Note: Received message from nursing, patient having increasing flank pain with admission for kidney stone. Patient may be possibly passing stone. Toradol added along with IV fluids and Dilaudid PRN. Nursing asked to notify this scientific technical writer if pain remains uncontrolled. Plan of care reviewed with nursing. Time Spent With Patient Time: Total time managing care of this patient today ____ minutes.
[2024-12-11 03:30] VITALS: BP 128/61; PULSE 79; RESP 15; TEMP 36.2; O2SAT 98
[2024-12-11 07:07] LABS: MANUAL DIFF FLAG NO
[2024-12-11 07:11] LABS: Hematocrit 38.5 % (42.0-52.0); Hemoglobin 12.7 g/dl (14.0-18.0); Imm Gran Abs Auto 0.02 X10*3/uL (0.00-0.03); Imm Gran Pct Auto 0.3 % (0.0-0.4); Lymphocytes Absolute Auto 1.7 X10*3/uL (1.2-4.9); Mean Corpuscular HGB Conc 33.0 g/dl (31.0-36.0); Mean Corpuscular Hemoglobin 29.6 pg (27.0-33.0); Mean Corpuscular Volume 89.7 fL (80.0-98.0); NRBC Abs Auto 0.000 X10*3/uL (0.0-0.012); NRBC Pct Auto 0.0 /100WBC (0.0-0.2); Platelet Count 233 X10*3/uL (160-400); Red Blood Count 4.29 X10*6/uL (4.60-5.80); White Blood Count 7.1 X10*3/uL (4.8-10.8)
[2024-12-11 07:26] LABS: Anion Gap 13 (12-20); Blood Urea Nitrogen 19 mg/dL (9-16); Carbon Dioxide 21 mmol/L (22-29); Chloride 108 mmol/L (96-108); Creatinine Clr Calc Pharmacy 89.4; Estimated Glomerular Filt Rate 49; Magnesium 2.0 mg/dL (1.6-2.6); Potassium 3.9 mmol/L (3.3-5.1); Sodium 138 mmol/L (135-145)
[2024-12-11 07:32] LABS: Calcium 8.4 mg/dL (8.4-10.2)
[2024-12-11 07:37] LABS: Glucose, Whole Blood 150 mg/dL (60-115)
[2024-12-11 07:59] VITALS: BP 141/85; PULSE 75; RESP 18; TEMP 36.5; O2SAT 97
--- NOTE | 2024-12-11 07:59 | HO.PM.IMPN ---
Subjective Subjective Date of Service: 12/11/24 Interval History: Right hydronephrosis , Right UPJ stone Review of Systems pain seems slightly improving Review of Systems: Yes all other systems are reviewed and are negative Physical Exam Exam: Exam: Appearance: Alert.? Oriented X3.? cvs: rrr, [id number]. res: clear to auscultation ,no rhonchii or wheezing abd: no rebound or guarding ,has right flank pain, bs present. cva-no cva tenderness ext pulses present , no cyanosis . neuro: axo3 , nonfocal. Vital Signs: Vital Signs: Last Vital Signs Temp 97.2 F 12/11/24 03:30 Pulse 79 12/11/24 03:30 Resp 15 12/11/24 03:30 BP 128/61 12/11/24 03:30 Pulse Ox 98 12/11/24 03:30 O2 Del Method Room Air 12/11/24 03:30 BMI result Body Mass Index 40.7 Objective Data Active Medications Acetaminophen (Acetaminophen 325 Mg Tablet) 975 mg PO Q6H PRN PRN Reason: Pain, Mild 1-3,fever,headache Calcium Carbonate (Calcium Carbonate 750 Mg Tab.Chew) 750 mg PO Q4H PRN PRN Reason: Heartburn Dextrose (Dextrose 50 % 25 Gm/50 Ml Syringe) 25 gm IVPUSH Q15M PRN; Protocol PRN Reason: per Hypoglycemia Standing Ord. Glucose (Glucose Gel 15 Gm Gel..Gram.) 15 gm PO Q15M PRN; Protocol PRN Reason: per Hypoglycemia Standing Ord. Hydromorphone HCl (Hydromorphone Hcl 1 Mg/Ml Syringe) 1 mg IVPUSH Q3H PRN; Protocol PRN Reason: Pain, Severe (Pain Scale 7-10) Last Admin: 12/10/24 05:37 Dose: 1 mg Documented By: LOLA Hydromorphone HCl (Hydromorphone Hcl 1 Mg/Ml Syringe) 1 mg IVPUSH Q3H PRN; Protocol PRN Reason: Pain, Severe (Pain Scale 7-10) Ceftriaxone Sodium 2 gm/ (Sodium Chloride) 50 mls @ 100 mls/hr IV Q24H EDEN Last Infusion: 12/11/24 05:22 Dose: Infused Documented By: MARICHUY Sodium Chloride (Ns) 1,000 mls @ 125 mls/hr IVCONT .Q8H [facility] Last Infusion: 12/11/24 05:45 Dose: 125 mls/hr Documented By: MARICHUY Insulin Human Lispro (Insulin Lispro 100 Unit/Ml 3 Ml Vial) 0 unit SUBCUT QIDACHS [facility]; Protocol Last Admin: 12/10/24 20:39 Dose: Not Given Documented By: MARICHUY Non-Admin Reason: No Insulin Coverage Ketorolac Tromethamine (Ketorolac Tromethamine 15 Mg/Ml Vial) 15 mg IVPUSH Q6H PRN PRN Reason: Pain, Moderate(Pain Scale 4-6) Last Admin: 12/11/24 01:02 EDT Dose: 15 mg Documented By: MARICHUY Magnesium Hydroxide (Milk Of Magnesia 30 Ml Oral.Susp) 30 ml PO DAILY PRN PRN Reason: Constipation Melatonin (Melatonin 3 Mg Tablet) 6 mg PO BEDTIME PRN PRN Reason: Insomnia Ondansetron HCl (Ondansetron Hcl 4 Mg/2 Ml Vial) 4 mg IVPUSH Q4H PRN PRN Reason: Nausea and Vomiting Sodium Chloride (0.9 % Sodium Chloride Flush 3 Ml Syringe) [address] [facility] Last Admin: 12/10/24 21:03 Dose: 3 ml Documented By: MARICHUY Labs 12/11/24 05:49 12/11/24 05:49 Labs: Laboratory Results - last 24 hr 12/10/24 12/10/24 12/10/24 13:10 15:34 20:29 MCV MCH MCHC RDW Plt Count MPV Immature Gran % (Auto) Neut % (Auto) Lymph % (Auto) [place] % (Auto) Eos % (Auto) Baso % (Auto) Lymph # (Auto) [place] # (Auto) Eos # (Auto) Baso # (Auto) Abs Immat Gran (auto) Absolute Neuts (auto) Absolute Nucleated RBC Nucleated RBC % (auto) Anion Gap Estim Creat Clear Calc Estimated GFR POC Glucose 141 H 167 H 125 H Random Glucose Calcium Magnesium 12/11/24 12/11/24 05:49 07:31 MCV 89.7 MCH 29.6 MCHC 33.0 RDW 13.0 Plt Count 233 D MPV 9.6 Immature Gran % (Auto) 0.3 Neut % (Auto) 63.6 Lymph % (Auto) 23.7 [place] % (Auto) 9.7 Eos % (Auto) 2.1 Baso % (Auto) 0.6 Lymph # (Auto) 1.7 [place] # (Auto) 0.7 Eos # (Auto) 0.2 Baso # (Auto) 0.0 Abs Immat Gran (auto) 0.02 Absolute Neuts (auto) 4.5 Absolute Nucleated RBC 0.000 Nucleated RBC % (auto) 0.0 Anion Gap 13 Estim Creat Clear Calc 89.4 Estimated GFR 49 POC Glucose 150 H Random Glucose 133 H Calcium 8.4 D Magnesium 2.0 Microbiology Microbiology Results: Microbiology 12/10/24 05:32 Blood Culture - Preliminary Blood - Venous No growth after 24 hours. 12/10/24 05:32 Blood Culture - Preliminary Blood - Venous No growth after 24 hours. Assessment and Plan (1) Hyperglycemia: Status: Acute (2) Hydroureter on right: Status: Acute Plan 34 y/o man who presents with: Right hydronephrosis due to obstructive renal calculi. Continue IV fluids. Pain control. Empiric IV antibiotic therapy ?UTI. Blood negative @24hrs ,urine cultures-negative . Urology consult. NPO past midnight, we will need possible stenting in morning shyam -sec to obstructive uropathy in the setting of stone: IV fluid, avoid NSAID/nephrotoxic medications. IV fluids. new onset dm :Hyperglycemia, random glucose 207: IV fluids. BG checks before meals at bedtime. Insulin sliding scale. Check hemoglobin A1c: 6.7. Diabetic diet. Obesity class 3. BMI 40.0 kg/m2. Encourage weight loss and lifestyle modifications. Code status: Full DVT prophylaxis: SCDs, early ambulation ongoing need for right hydronephrosis due to obstructive renal calculi therapy with IV fluids, IV pain control, empiric IV antibiotic therapy and evaluation by Urology for possible urgent procedure. Quality Stroke Does the patient have a stroke diagnosis?: No VTE Prior VTE?: No VTE Risk Level:: Medical - moderate - high VTE Device Contraindication: N/A - Device Ordered VTE Drug Contraindication: Treatment Not Indicated
[2024-12-11 11:43] LABS: Glucose, Whole Blood 113 mg/dL (60-115)
[2024-12-11 15:09] VITALS: BP 119/59; PULSE 63; RESP 18; TEMP 37.1; O2SAT 98
[2024-12-11 15:56] LABS: Glucose, Whole Blood 86 mg/dL (60-115)
[2024-12-11] MEDS: Lactated Ringers 1,000 ML 100 ML IVCONT (17:39)
[2024-12-11 19:16] VITALS: BP 141/86; PULSE 77; RESP 18; TEMP 36.6; O2SAT 97
[2024-12-11 20:08] LABS: Glucose, Whole Blood 169 mg/dL (60-115)
--- NOTE | 2024-12-11 20:12 | PC.NURSE ---
pt reported good size stone passed in bathroom placed in container will show md in am pt still NPO for scheduled procedure in am
[2024-12-12] MEDS: Lactated Ringers 1,000 ML 100 ML IVCONT (01:48)
[2024-12-12 03:56] VITALS: BP 111/70; PULSE 52; RESP 18; TEMP 36.5; O2SAT 97
[2024-12-12 07:42] LABS: Glucose, Whole Blood 118 mg/dL (60-115)
[2024-12-12 07:51] VITALS: BP 110/60; PULSE 52; RESP 18; TEMP 36.7; O2SAT 96
--- NOTE | 2024-12-12 08:20 | P.CONAN_ITS ---
HPI - Anesthesia Eval Consult details Narrative: 34 yr old male for right Cystoscopy, Ureteroroscopy, Retro, Laser,with stent placement BMI 41 New onset Type 2 DM PMFSH Active Problems Active Problems: All Active Problems Hyperglycemia (Acute) Hydronephrosis of right kidney (Acute) Hydroureter on right (Acute) Calculus of distal right ureter (Acute) Urinary tract infection (Acute) Past Medical History Medical History Obesity due to excess calories Social History Social History Household Members: Family Housing: Apartment Do you presently have visiting nurse or other home services: No Alcohol intake: current Patient Tobacco Use Status: Current someday Tobacco user Tobacco use type: Cigarette Second Hand Smoke Exposure: Yes Substance Use Type: Marijuana Meds Allergies Allergy/AdvReac Type Severity Reaction Status Date / Time No Known Allergies Allergy Verified 12/10/24 01:49 Latex Allergy Unknown rash Uncoded 12/10/24 01:49 Active Medications: Current Medications Acetaminophen (Acetaminophen 325 Mg Tablet) 975 mg PO Q6H PRN PRN Reason: Pain, Mild 1-3,fever,headache Calcium Carbonate (Calcium Carbonate 750 Mg Tab.Chew) 750 mg PO Q4H PRN PRN Reason: Heartburn Dextrose (Dextrose 50 % 25 Gm/50 Ml Syringe) 25 gm IVPUSH Q15M PRN; Protocol PRN Reason: per Hypoglycemia Standing Ord. Glucose (Glucose Gel 15 Gm Gel..Gram.) 15 gm PO Q15M PRN; Protocol PRN Reason: per Hypoglycemia Standing Ord. Hydromorphone HCl (Hydromorphone Hcl 1 Mg/Ml Syringe) 1 mg IVPUSH Q3H PRN; Protocol PRN Reason: Pain, Severe (Pain Scale 7-10) Last Admin: 12/10/24 05:37 Dose: 1 mg Hydromorphone HCl (Hydromorphone Hcl 1 Mg/Ml Syringe) 1 mg IVPUSH Q3H PRN; Protocol PRN Reason: Pain, Severe (Pain Scale 7-10) Ceftriaxone Sodium 2 gm/ (Sodium Chloride) 50 mls @ 100 mls/hr IV Q24H EDEN Last Infusion: 12/12/24 06:16 Dose: Infused Sodium Chloride (Ns) 1,000 mls @ 125 mls/hr IVCONT .Q8H [facility] [place] Last Admin: 12/12/24 07:09 Dose: Not Given Lactated Ringer's (Lr) 1,000 mls @ 100 mls/hr IVCONT .Q10H [facility] [place] Last Admin: 12/12/24 01:48 Dose: 100 mls/hr Insulin Human Lispro (Insulin Lispro 100 Unit/Ml 3 Ml Vial) 0 unit SUBCUT QIDACHS [facility] [place]; Protocol Last Admin: 12/12/24 07:53 Dose: Not Given Magnesium Hydroxide (Milk Of Magnesia 30 Ml Oral.Susp) 30 ml PO DAILY PRN PRN Reason: Constipation Melatonin (Melatonin 3 Mg Tablet) 6 mg PO BEDTIME PRN PRN Reason: Insomnia Ondansetron HCl (Ondansetron Hcl 4 Mg/2 Ml Vial) 4 mg IVPUSH Q4H PRN PRN Reason: Nausea and Vomiting Sodium Chloride (0.9 % Sodium Chloride Flush 3 Ml Syringe) 3 ml IVFLUSH QSHIFT [facility] [place] Last Admin: 12/12/24 07:10 Dose: Not Given Home Medications ?Medication ?Instructions ?Recorded ?Confirmed ?Last Taken ?Type No Known Home Meds 12/10/24 12/10/24 Un known History Exam Height,Weight and Vital Signs: Height 5 ft 11 in Weight 132.4 kg Last Vital Signs Temp 98.0 F 12/12/24 07:51 Pulse 52 12/12/24 07:51 Resp 18 12/12/24 07:51 BP 110/60 12/12/24 07:51 Pulse Ox 96 12/12/24 07:51 O2 Del Method Room Air 12/12/24 07:51 Pertinent Lab Results Pertinent Lab Results: Laboratory Tests 12/10/24 12/10/24 12/10/24 02:19 04:12 05:32 WBC 16.0 H RBC 5.22 Hgb 15.4 Hct 45.6 MCV 87.4 MCH 29.5 MCHC 33.8 RDW 13.2 Plt Count 330 MPV 8.9 L Immature Gran % (Auto) 0.4 Neut % (Auto) 81.6 H Lymph % (Auto) 10.7 L Perry % (Auto) 6.1 Eos % (Auto) 0.8 Baso % (Auto) 0.4 Lymph # (Auto) 1.7 Perry # (Auto) 1.0 Eos # (Auto) 0.1 Baso # (Auto) 0.1 Abs Immat Gran (auto) 0.07 H Absolute Neuts (auto) 13.1 H Absolute Nucleated RBC 0.000 Nucleated RBC % (auto) 0.0 Sodium 137 Potassium 3.7 Chloride 101 Carbon Dioxide 24 Anion Gap 16 BUN 20 H Creatinine 1.29 Estim Creat Clear Calc 109.8 Estimated GFR > 60 POC Glucose Random Glucose 207 H Estimat Average Glucose Hemoglobin A1c % Lactic Acid 1.4 Calcium 10.1 Magnesium 2.2 Total Bilirubin 1.8 H AST 30 ALT 24 Alkaline Phosphatase 95 Total Protein 7.9 Albumin 5.1 H Triglycerides Cholesterol LDL Cholesterol, Calc HDL Cholesterol Lipase 28 Urine Color Yellow Urine Appearance Turbid Urine pH 5.5 Ur Specific [place] >= 1.030 H Urine Protein 300 (3+) H Urine Glucose (UA) 100 H Urine Ketones Trace Urine Blood Moderate (2+) H Urine Nitrite Positive H Ur Leukocyte Esterase Trace H Urine RBC 3-5 H Urine WBC 0-5 Ur Squamous Epith Cells 0-2 Urine Bacteria None Seen Hyaline Casts 3-5 12/10/24 12/10/24 12/10/24 06:25 07:30 13:10 WBC RBC Hgb Hct MCV MCH MCHC RDW Plt Count MPV Immature Gran % (Auto) Neut % (Auto) Lymph % (Auto) Perry % (Auto) Eos % (Auto) Baso % (Auto) Lymph # (Auto) Perry # (Auto) Eos # (Auto) Baso # (Auto) Abs Immat Gran (auto) Absolute Neuts (auto) Absolute Nucleated RBC Nucleated RBC % (auto) Sodium Potassium Chloride Carbon Dioxide Anion Gap BUN Creatinine Estim Creat Clear Calc Estimated GFR POC Glucose 140 H 141 H Random Glucose Estimat Average Glucose 146 Hemoglobin A1c % 6.7 H Lactic Acid Calcium Magnesium Total Bilirubin AST ALT Alkaline Phosphatase Total Protein Albumin Triglycerides 130 Cholesterol 202 H LDL Cholesterol, Calc 133 H HDL Cholesterol 43 Lipase Urine Color Urine Appearance Urine pH Ur Specific [place] Urine Protein Urine Glucose (UA) Urine Ketones Urine Blood Urine Nitrite Ur Leukocyte Esterase Urine RBC Urine WBC Ur Squamous Epith Cells Urine Bacteria Hyaline Casts 12/10/24 12/10/24 12/11/24 15:34 20:29 05:49 WBC 7.1 RBC 4.29 L Hgb 12.7 L Hct 38.5 L MCV 89.7 MCH 29.6 MCHC 33.0 RDW 13.0 Plt Count 233 D MPV 9.6 Immature Gran % (Auto) 0.3 Neut % (Auto) 63.6 Lymph % (Auto) 23.7 Perry % (Auto) 9.7 Eos % (Auto) 2.1 Baso % (Auto) 0.6 Lymph # (Auto) 1.7 Perry # (Auto) 0.7 Eos # (Auto) 0.2 Baso # (Auto) 0.0 Abs Immat Gran (auto) 0.02 Absolute Neuts (auto) 4.5 Absolute Nucleated RBC 0.000 Nucleated RBC % (auto) 0.0 Sodium 138 Potassium 3.9 Chloride 108 Carbon Dioxide 21 L Anion Gap 13 BUN 19 H Creatinine 1.60 H Estim Creat Clear Calc 89.4 Estimated GFR 49 POC Glucose 167 H 125 H Random Glucose 133 H Estimat Average Glucose Hemoglobin A1c % Lactic Acid Calcium 8.4 D Magnesium 2.0 Total Bilirubin AST ALT Alkaline Phosphatase Total Protein Albumin Triglycerides Cholesterol LDL Cholesterol, Calc HDL Cholesterol Lipase Urine Color Urine Appearance Urine pH Ur Specific [place] Urine Protein Urine Glucose (UA) Urine Ketones Urine Blood Urine Nitrite Ur Leukocyte Esterase Urine RBC Urine WBC Ur Squamous Epith Cells Urine Bacteria Hyaline Casts 12/11/24 12/11/24 12/11/24 07:31 11:24 15:52 WBC RBC Hgb Hct MCV MCH MCHC RDW Plt Count MPV Immature Gran % (Auto) Neut % (Auto) Lymph % (Auto) [place] % (Auto) Eos % (Auto) Baso % (Auto) Lymph # (Auto) [place] # (Auto) Eos # (Auto) Baso # (Auto) Abs Immat Gran (auto) Absolute Neuts (auto) Absolute Nucleated RBC Nucleated RBC % (auto) Sodium Potassium Chloride Carbon Dioxide Anion Gap BUN Creatinine Estim Creat Clear Calc Estimated GFR POC Glucose 150 H 113 86 Random Glucose Estimat Average Glucose Hemoglobin A1c % Lactic Acid Calcium Magnesium Total Bilirubin AST ALT Alkaline Phosphatase Total Protein Albumin Triglycerides Cholesterol LDL Cholesterol, Calc HDL Cholesterol Lipase Urine Color Urine Appearance Urine pH Ur Specific [place] Urine Protein Urine Glucose (UA) Urine Ketones Urine Blood Urine Nitrite Ur Leukocyte Esterase Urine RBC Urine WBC Ur Squamous Epith Cells Urine Bacteria Hyaline Casts 12/11/24 12/12/24 20:04 07:31 WBC RBC Hgb Hct MCV MCH MCHC RDW Plt Count MPV Immature Gran % (Auto) Neut % (Auto) Lymph % (Auto) [place] % (Auto) Eos % (Auto) Baso % (Auto) Lymph # (Auto) Perry # (Auto) Eos # (Auto) Baso # (Auto) Abs Immat Gran (auto) Absolute Neuts (auto) Absolute Nucleated RBC Nucleated RBC % (auto) Sodium Potassium Chloride Carbon Dioxide Anion Gap BUN Creatinine Estim Creat Clear Calc Estimated GFR POC Glucose 169 H 118 H Random Glucose Estimat Average Glucose Hemoglobin A1c % Lactic Acid Calcium Magnesium Total Bilirubin AST ALT Alkaline Phosphatase Total Protein Albumin Triglycerides Cholesterol LDL Cholesterol, Calc HDL Cholesterol Lipase Urine Color Urine Appearance Urine pH Ur Specific [place] Urine Protein Urine Glucose (UA) Urine Ketones Urine Blood Urine Nitrite Ur Leukocyte Esterase Urine RBC Urine WBC Ur Squamous Epith Cells Urine Bacteria Hyaline Casts
[2024-12-12 09:33] LABS: Anion Gap 9 (12-20); Blood Urea Nitrogen 14 mg/dL (9-16); Calcium 8.6 mg/dL (8.4-10.2); Carbon Dioxide 27 mmol/L (22-29); Chloride 109 mmol/L (96-108); Creatinine Clr Calc Pharmacy 138.9; Estimated Glomerular Filt Rate > 60; Potassium 4.1 mmol/L (3.3-5.1); Sodium 141 mmol/L (135-145)
--- NOTE | 2024-12-12 11:11 | PM.DS ---
DS: Providers Provider Date of Service: 12/12/24 Date of admission: 12/10/24 05:17 Date of discharge: 12/12/24 Primary care physician: Unknown Physician Consults: 12/10/24 05:21 Consult to Urology Routine Consulting Provider: [facility] Reason for consultation: Obstructive renal calculi, hydronephrosis, UTI Has provider been notified: No Attending physician on discharge: Elizabeth Long Discharging clinician: Elizabeth Long DS: Diagnosis Discharge Diagnosis (1) Hyperglycemia: Status: Acute (2) Hydroureter on right: Status: Acute DS: Summary Hospital Course Hospital Course: HPI: 34years old man with no significant past medical history presents to the emergency department complaining of severe right flank pain/back radiating to the pelvic region since yesterday. He had decreased urinary frequency are noted that his urine was dark. He denied nausea or vomiting. Denied fever or chills. Denied any acute cardiopulmonary or gastrointestinal symptoms. Denied history of nephrolithiasis. He smoked marijuana daily. Denied illicit drug use or alcohol abuse. In the ED he was found to have stable vital. Blood workup was remarkable for leukocytosis of 16.0. There is no lactic acidosis. Hemoglobin is 12.4 and platelets 330. There are no significant electrolyte imbalances. His glucose 207. Total bilirubin is 1.8, other LFTs and lipase are normal. Albumin 5.1. Urinalysis showed blood 2+, RBC 3-4, leukocyte esterase trace, nitrite positive, WBC 0-5, specific gravity. Abdomen and pelvis CT scan without IV contrast showed mild right sided hydroureteronephrosis with 4-5 mm stone in the right ureterovesical joint. ED Tx: NS 1 L bolus, ketorolac 15 mg IV, morphine 12 mg IV total, Zofran 4 mg IV, tamsulosin 0.4 mg p.o., ceftriaxone 2 g IV. Hospital course: Patient was admitted for flank pain, abdominal imaging found to have right side UPJ stone( Right hydronephrosis due to obstructive renal calculi): Given hydration, pain management,iv antibiotics for ?uti: This morning patient says he is seems to pass the stone-his pain is resolved totally, GRACIE also improved. He denies any other urinary complaints, urine culture negative, urology recommended to defer antibiotics. Patient also has new onset diabetes: Hemoglobin A1c was 6.7 Started on metformin, monitor hemoglobin A1c outpatient. Patient will be going home with p.o. Flomax. plan: Continue Flomax as prescribed. Encouraged for hydration. Diabetic diet, metformin as prescribed, repeat hemoglobin A1c outpatient. GRACIE resolved-monitor BMP outpatient. Follow up with PCP ,consider outpatient endocrinology evaluation Above management discussed with the patient detail length he understand and in agreement with the above plan, time spent 45 minute. Time Attestation Total time managing care of this patient today: 45 mintues. Discharge Coordination Time (in mins): 45 minute. Quality: Safe Use of Opioids Does Pt have an Active Cancer Diagnosis on the Problem List?: No Quality: Stroke Does the patient have a stroke diagnosis?: No Physical Exam Exam: Exam: Appearance: Alert.? Oriented X3.? cvs: [id number], [id number] , no murmur res: clear to auscultation ,no rhonchii or wheezing abd: no rebound or guarding ,nt, bs present. ext pulses present , no cyanosis. neuro: axo3 , nonfocal. Vital Signs: Vital Signs: Last Vital Signs Temp 98.0 F 12/12/24 07:51 Pulse 52 12/12/24 07:51 Resp 18 12/12/24 07:51 BP 110/60 12/12/24 07:51 Pulse Ox 96 12/12/24 07:51 O2 Del Method Room Air 12/12/24 07:51 BMI result Body Mass Index 40.7 DS: Data Data Completed and Pending Labs on day of discharge: Laboratory Results - last 24 hr 12/11/24 12/11/24 12/11/24 11:24 15:52 20:04 Sodium Potassium Chloride Carbon Dioxide Anion Gap BUN Creatinine Estim Creat Clear Calc Estimated GFR POC Glucose 113 86 169 H Random Glucose Calcium 12/12/24 12/12/24 07:31 08:49 Sodium 141 Potassium 4.1 Chloride 109 H Carbon Dioxide 27 Anion Gap 9 L BUN 14 Creatinine 1.03 Estim Creat Clear Calc 138.9 Estimated GFR > 60 POC Glucose 118 H Random Glucose 111 Calcium 8.6 Preliminary micro results at discharge 12/10/24 05:32 Blood Culture - Preliminary Blood - Venous No growth after 48 hours. 12/10/24 05:32 Blood Culture - Preliminary Blood - Venous No growth after [address] scan - abdomen: My impression: ct abd: 1. Mild right-sided hydroureteronephrosis, with a 4-5 mm stone in the right ureterovesical junction. 2. Additional findings are detailed above. abd us: 1. Mild fullness of right renal collecting system and mild right hydroureter. Stone at/adjacent to right ureterovesical junction but right ureteral jet is visualized. 2. Unremarkable left kidney. Discharge Plan Discharge Anticipated Discharge Date/Time: 12/12/24 10:56 Patient Disposition: Home, Self-Care Discharge Diagnosis: gracie ,upj stone Referrals: Physician,Unknown J [Primary Care Provider, Medical] - 1 Week Discharge Medications: New metformin 500 mg Tablet 500 mg PO BIDWM Qty: 180 0RF acetaminophen 325 mg Tablet 975 mg PO Q6H PRN (Reason: Pain, Mild 1-3,Fever,Headache) Qty: 10 0RF tamsulosin 0.4 mg Capsule 0.4 mg PO BEDTIME Qty: 10 0RF Discharge Orders: Discharge Order (Routine); Ordered 12/12/24 Ordered By: Elizabeth Long Diet: Advance to usual diet Activity on Discharge: As tolerated Stand Alone Forms: Patient Portal Discharge page Print Language: [place] Care Plan Goals: Continue Flomax as prescribed. Encouraged for hydration. Diabetic diet, metformin as prescribed, repeat hemoglobin A1c outpatient. GRACIE resolved-monitor BMP outpatient. Follow up with PCP ,consider outpatient endocrinology evaluation Health Concerns: as above. Plan of Treatment: As above. Assessment: As above.
[2024-12-12 11:17] LABS: Glucose, Whole Blood 175 mg/dL (60-115)
--- NOTE | 2024-12-12 12:39 | MHC.CM.PN ---
PT REPORTS HE LIVES WITH HIS FATHER AND IS INDEPENDENT WITH CARE HE HAS NO DME OR SERVICES DECLINES A HCP PCP: MATHEW KHAN PT CLEARED TO DC HOME TODAY WITH NO SERVICES FAMILY TO TRANSPORT PT REPORTS HE THOUGHT HE HAD INSURANCE AND IS UNSURE WHY IT IS NOT ACTIVE HE IS [place] [facility] [place]
== END 2024-12-12 12:43 | disposition home or self-care (01) | DRG 694 ==
LOC: HO.ED 05:29 → HO.EDOVER 05:33 → HO.S3 11:36
PROVIDERS: Physician Assistant; Physician Assistant Medical; Admitting Provider Internal Medicine; Emergency Provider Emergency Medicine; PCP Internal Medicine; Visit Provider Internal Medicine
DX: N13.2 Hydronephrosis with renal and ureteral calculous obstruction (principal); Z68.41 Body mass index [BMI] 40.0-44.9, adult; F17.210 Nicotine dependence, cigarettes, uncomplicated; Z71.6 Tobacco abuse counseling; Z71.3 Dietary counseling and surveillance; E66.813 Obesity, class 3; E11.65 Type 2 diabetes mellitus with hyperglycemia
CPT/HCPCS: 36415; 74176; 76770; 80048; 80053; 80061; 81001; 82365; 82947; 83036; 83605; 83690; 83735; 85025; 87040; 87086; 99285; J0696; J1171; J1885; J2270; J2405; J7120

== ENCOUNTER → 2024-12-10 03:50 | Outpatient (BNV) | payer SELFPAY | PROVIDERS: Admitting Provider Internal Medicine; Emergency Provider Emergency Medicine; Visit Provider Radiology Diagnostic Radiology | DX: N13.2 Hydronephrosis with renal and ureteral calculous obstruction (principal) | CPT/HCPCS: 74176 ==

== ENCOUNTER 2024-12-10 05:17 | Outpatient (BNV) | payer SELFPAY | END 2024-12-11 12:30 | PROVIDERS: Admitting Provider Internal Medicine; Emergency Provider Emergency Medicine; Visit Provider Specialist | DX: N13.2 Hydronephrosis with renal and ureteral calculous obstruction (principal); N13.4 Hydroureter | CPT/HCPCS: 76770 ==

== ENCOUNTER → 2024-12-10 05:17 | Outpatient (BNV) | payer SELFPAY | PROVIDERS: Admitting Provider Internal Medicine; Emergency Provider Emergency Medicine; Visit Provider Urology | DX: N20.1 Calculus of ureter (principal); N13.4 Hydroureter; N13.30 Unspecified hydronephrosis; N39.0 Urinary tract infection, site not specified | CPT/HCPCS: 99222 ==

== ENCOUNTER → 2024-12-10 05:17 | Outpatient (BNV) | payer SELFPAY | PROVIDERS: Admitting Provider Internal Medicine; Emergency Provider Emergency Medicine; Visit Provider Internal Medicine | DX: R73.9 Hyperglycemia, unspecified (principal); N13.4 Hydroureter | CPT/HCPCS: 99223; 99231; 99239; 99499 ==